=== PATIENT | male | born 1950 | race Caucasian/White ===

== ENCOUNTER 2017-11-23 02:04 | Observation (INO) | payer OTHER ==
[~2017-11-23] VITALS: Ht 182.9 cm; Wt 102.1 kg
[~2017-11-23 02:04] MED LIST: Advil200 M1 PO
[2017-11-23] MEDS ORDERED: AMOX875 PO (02:23)
[2017-11-23] MEDS ORDERED: VIRTUSSIN AC L118 ML PO (02:23)
[2017-11-23] MEDS ORDERED: ALBU90OI INH (02:24)
[2017-11-23] MEDS ORDERED: PRED20 PO (02:24)
[2017-11-23 03:35] LABS: BASOPHILS ABSOLUTE AUTO 0.04 K/mm3 (0.00-0.23); BASOPHILS PERCENT AUTO 0 % (0-2); EOSINOPHILS ABSOLUTE AUTO 0.12 K/mm3 (0.00-0.68); EOSINOPHILS PERCENT AUTO 1 % (0-6); Hematocrit 38.7 % (37.0-53.0); Hemoglobin 13.1 g/dL (13.5-17.5); Mean Corpuscular HGB 28.9 pg (26.0-34.0); Mean Corpuscular HGB Conc 33.9 g/dL (31.5-36.5); Mean Corpuscular Volume 85 fL (80-100); Mean Platelet Volume 11.7 fL (9.1-12.4); Platelet Count 187 K/mm3 (150-400); RDW Coefficient Variation 12.1 % (11.7-14.2); RDW Standard Deviation 37.5 fL (35.1-46.3); Red Blood Cell Count 4.53 M/mm3 (4.30-5.90); White Blood Cell Count 8.97 K/mm3 (4.00-11.30)
[2017-11-23 03:42] LABS: IMMATURE GRAN ABSOLUTE AUTO 0.03 K/mm3 (0.00-0.10); IMMATURE GRAN PERCENT AUTO 0 % (0-1); LYMPHOCYTES ABSOLUTE AUTO 1.69 K/mm3 (0.84-5.20); LYMPHOCYTES PERCENT AUTO 19 % (21-46); MONOCYTES ABSOLUTE AUTO 0.82 K/mm3 (0.16-1.47); MONOCYTES PERCENT AUTO 9 % (4-13); NEUTROPHILS ABSOLUTE AUTO 6.27 K/mm3 (1.96-9.15); NEUTROPHILS PERCENT AUTO 70 % (41-73)
[2017-11-23 03:55] LABS: Alanine Aminotransfer (ALT/SGP 42 U/L (12-78); Albumin/Globulin Ratio 0.7 (0.8-1.8); Alk Phos 70 U/L (50-136); Anion Gap 5 mmol/L (6-16); Aspartate Aminotrans (AST/SGOT 25 U/L (12-37); Bilirubin, Total 0.3 mg/dL (0.1-1.0); Blood Urea Nitrogen 21 mg/dL (8-24); Bun/Creatinine Ratio 17.5 (12.0-20.0); CO2, Blood 29 mmol/L (21-32); Calcium, Blood 8.5 mg/dL (8.5-10.1); Chloride, Blood 105 mmol/L (98-108); Globulin, Blood 4.1 g/dL (2.2-4.0); Glomerular Filtration Rate >60 (60-); Glucose, Blood 102 mg/dL (70-99); Potassium, Blood 4.5 mmol/L (3.5-5.5); Sodium, Blood 139 mmol/L (136-145); Total Protein, Blood 7.1 g/dL (6.4-8.2); Troponin I 0.031 ng/mL (0.000-0.040)
[2017-11-23 05:01] LABS: PO2 Arterial 71.3 mmHg (80-100); pH Blood Arterial 7.43 (7.35-7.45)
[2017-11-23 06:22] LABS: Source, Urine Clean Catch
[2017-11-23 06:23] LABS: Bilirubin, Urine Neg (Neg); Blood, Urine Neg (Neg); Glucose Qualitative, Urine Neg (Neg); Ketones, Urine Neg (Neg); Leukocyte Esterase, Urine Neg (Neg); Nitrite, Urine Neg (Neg); Protein, Urine Neg (Neg); Specific Gravity, Urine 1.015 (1.003-1.022); Urobilinogen, Urine NORM (Normal)
[2017-11-23 06:35] LABS: Appearance, Urine Clear (Clear); Color, Urine Yellow (P-Yellow)
[2017-11-24 05:36] LABS: Hematocrit 38.8 % (37.0-53.0); Hemoglobin 13.3 g/dL (13.5-17.5); Mean Corpuscular HGB 29.2 pg (26.0-34.0); Mean Corpuscular HGB Conc 34.3 g/dL (31.5-36.5); Mean Corpuscular Volume 85 fL (80-100); Mean Platelet Volume 11.2 fL (9.1-12.4); Platelet Count 215 K/mm3 (150-400); RDW Standard Deviation 37.1 fL (35.1-46.3); Red Blood Cell Count 4.56 M/mm3 (4.30-5.90); White Blood Cell Count 7.44 K/mm3 (4.00-11.30)
[2017-11-24 05:56] LABS: Alanine Aminotransfer (ALT/SGP 37 U/L (12-78); Albumin, Blood 2.8 g/dL (3.4-5.0); Albumin/Globulin Ratio 0.7 (0.8-1.8); Alk Phos 62 U/L (50-136); Anion Gap 7 mmol/L (6-16); Aspartate Aminotrans (AST/SGOT 18 U/L (12-37); Bilirubin, Total 0.4 mg/dL (0.1-1.0); Blood Urea Nitrogen 18 mg/dL (8-24); Bun/Creatinine Ratio 16.5 (12.0-20.0); CO2, Blood 27 mmol/L (21-32); Calcium, Blood 8.5 mg/dL (8.5-10.1); Chloride, Blood 107 mmol/L (98-108); Creatinine, Blood 1.09 mg/dL (0.60-1.20); Glomerular Filtration Rate >60 (60-); Glucose, Blood 92 mg/dL (70-99); Potassium, Blood 4.4 mmol/L (3.5-5.5); Sodium, Blood 141 mmol/L (136-145); Total Protein, Blood 6.8 g/dL (6.4-8.2)
[2017-11-24 06:29] LABS: BASOPHILS PERCENT MAN 0 % (0-2); EOSINOPHILS ABSOLUTE MAN 0.22 K/mm3 (0.00-0.68); EOSINOPHILS PERCENT MAN 3 % (0-6); LYMPHOCYTES % ATYPICAL MANUAL 4 % (0-0); LYMPHOCYTES ABSOLUTE MAN 1.11 K/mm3 (0.84-5.20); LYMPHOCYTES PERCENT MAN 11 % (21-46); MONOCYTES ABSOLUTE MAN 0.37 K/mm3 (0.16-1.47); MONOCYTES PERCENT MAN 5 % (4-13); NEUTROPHILS ABSOLUTE MAN 5.72 K/mm3 (1.96-9.15); SEG NEUTROPHILS PERCENT MAN 77 % (41-73); TOTAL CELLS COUNTED 100
[2017-11-24] MEDS ORDERED: ROBITUSSIN NIG237 ML (14:54)
[2017-11-24] MEDS ORDERED: ROBITUSSIN COU237 ML PO (14:57)
[2017-11-24] MEDS ORDERED: FURO20 PO (14:58)
== END 2017-11-24 15:50 | disposition home or self-care (01) ==
LOC: ER 02:04 → ERHOLD 02:05 → SURS 02:05 → MEDS 12:46 → SURS 12:57
PROVIDERS: Emergency Medicine; Internal Medicine
DX: R55 Syncope and collapse (principal); J40 Bronchitis, not specified as acute or chronic; I50.30 Unspecified diastolic (congestive) heart failure; Z87.01 Personal history of pneumonia (recurrent); Z98.890 Other specified postprocedural states
CPT/HCPCS: 36415; 36600; 71260; 80053; 81003; 82803; 83605; 83690; 84484; 85025; 87040; 93005; 93010; 93306; 94760; 94762; 96372; 99285; G0378; J1650; J7030; Q9967

== ENCOUNTER 2019-03-01 06:02 | Day surgery (SDC) | payer OTHER ==
[~2019-03-01] VITALS: Ht 182.9 cm; Wt 103.3 kg
[~2019-03-01 06:02] MED LIST changes: +ALBU90OI INH; +ALLO100 PO; +AMOX875 PO; +ASPI81CH PO; +ATOR40TA PO; +FURO20 PO; +LOSA50 PO; +PRED20 PO; +ROBITUSSIN COU237 ML PO; +ROBITUSSIN NIG237 ML; +VIRTUSSIN AC L118 ML PO
--- NOTE | 2019-03-01 06:39 | NUR ---
Ambulatory in Day Surgery Patient states colon prep with enema.
--- NOTE | 2019-03-01 10:16 | NUR ---
Patient up to Ambulate independently. Gait steady. Discharge instructions reviewed with patient. Patient verbalizes understanding. Copy given to patient to take home. Patient States Post-Procedure ride home has been arranged. Discharged via wheelchair to private car for ride home.
== END 2019-03-02 23:03 | disposition home or self-care (01) ==
LOC: ORSCMMR 06:02 → ORD 07:30 → ORSCMMR 07:30
PROVIDERS: Surgery
PROC: 06BY0ZC Excision of Hemorrhoidal Plexus, Open Approach (ICD-10-PCS; principal; 2019-03-01 07:30)
DX: K64.2 Third degree hemorrhoids (principal); I25.2 Old myocardial infarction; I12.9 Hypertensive chronic kidney disease with stage 1 through stage 4 chronic kidney disease, or unspecified chronic kidney disease; N18.9 Chronic kidney disease, unspecified; Z79.899 Other long term (current) drug therapy; Z79.82 Long term (current) use of aspirin
CPT/HCPCS: 88304; A9270-GY; J1100; J1885; J2370; J2405; J2704; J3010; J7120

== ENCOUNTER 2019-04-23 07:40 | Day surgery (SDC) | payer OTHER ==
[~2019-04-23] VITALS: Ht 182.9 cm; Wt 100.1 kg
[~2019-04-23 07:40] MED LIST changes: +LO-DOSE ASPIRIN81 MG PO
== END 2019-04-23 09:45 | disposition home or self-care (01) ==
LOC: ORSCSDS 07:40
PROVIDERS: Internal Medicine Gastroenterology
PROC: 0DJD8ZZ Inspection of Lower Intestinal Tract, Via Natural or Artificial Opening Endoscopic (ICD-10-PCS; principal; 2019-04-23 09:00)
DX: Z12.11 Encounter for screening for malignant neoplasm of colon (principal); Z80.0 Family history of malignant neoplasm of digestive organs; E78.5 Hyperlipidemia, unspecified; I10 Essential (primary) hypertension; Z79.82 Long term (current) use of aspirin; Z79.899 Other long term (current) drug therapy; G47.30 Sleep apnea, unspecified
CPT/HCPCS: J0461; J1980; J2405; J2704; J7120

== ENCOUNTER 2022-03-28 08:42 | Observation (INO) | payer MEDICARE ==
[~2022-03-28] VITALS: Ht 182.9 cm; Wt 97.5 kg
[2022-03-28 10:07] LABS: BASOPHILS ABSOLUTE AUTO 0.02 K/mm3 (0.00-0.23); BASOPHILS PERCENT AUTO 0 % (0-2); EOSINOPHILS ABSOLUTE AUTO 0.01 K/mm3 (0.00-0.68); EOSINOPHILS PERCENT AUTO 0 % (0-6); Hematocrit 47.2 % (37.0-53.0); IMMATURE GRAN ABSOLUTE AUTO 0.03 K/mm3 (0.00-0.10); IMMATURE GRAN PERCENT AUTO 0 % (0-1); LYMPHOCYTES ABSOLUTE AUTO 0.61 K/mm3 (0.84-5.20); LYMPHOCYTES PERCENT AUTO 5 % (21-46); MONOCYTES ABSOLUTE AUTO 0.58 K/mm3 (0.16-1.47); MONOCYTES PERCENT AUTO 5 % (4-13); Mean Corpuscular HGB 29.5 pg (26.0-34.0); Mean Corpuscular HGB Conc 33.9 g/dL (31.5-36.5); Mean Corpuscular Volume 87 fL (80-100); Mean Platelet Volume 11.5 fL (9.1-12.4); NEUTROPHILS ABSOLUTE AUTO 11.11 K/mm3 (1.96-9.15); NEUTROPHILS PERCENT AUTO 90 % (41-73); Platelet Count 169 K/mm3 (150-400); RDW Coefficient Variation 12.5 % (11.7-14.2); RDW Standard Deviation 39.6 fL (35.1-46.3); Red Blood Cell Count 5.43 M/mm3 (4.30-5.90); White Blood Cell Count 12.36 K/mm3 (4.00-11.30)
[2022-03-28 10:29] LABS: Albumin, Blood 3.9 g/dL (3.4-5.0); Albumin/Globulin Ratio 1.1 (0.8-1.8); Bilirubin, Total 0.7 mg/dL (0.1-1.0); Bun/Creatinine Ratio 14.3 (12.0-20.0); Calcium, Blood 9.2 mg/dL (8.5-10.1); Creatinine, Blood 0.98 mg/dL (0.60-1.20); Globulin, Blood 3.5 g/dL (2.2-4.0); Potassium, Blood 4.8 mmol/L (3.5-5.5); Total Protein, Blood 7.4 g/dL (6.4-8.2)
[2022-03-28 12:29] LABS: Prothrombin Time Results 10.5 Sec (9.7-11.5)
[2022-03-28 13:52] LABS: SARS-Cov-2 (COVID-19) PCR, MMC NEGATIVE (NEGATIVE)
--- NOTE | 2022-03-28 13:57 | NUR ---
PT ARRIVED TO FROM ED/NOW TO OR. PT ARRIVED TO FROM ED ACCOMPANIED BY SPOUSE. TRANSFERRED INDEPENDENTLY FROM [facility] TO BED. SURICAL INFECTION PREVENTION PACK COMPLETED. ORIENTED PT TO ROOM/USE OF CALL LIGHT. VSS. PT REPORTS HX OF HTN AND SNORING. NOW TO OR.
--- NOTE | 2022-03-28 14:34 | NUR ---
03/28/22 1434 [address] PATIENT RECEIVED ROCEPHIN 1GM IN ER @ 1125 TODAY.
--- NOTE | 2022-03-28 15:58 | NUR ---
PT ARRIVED BACK TO UNIT FROM PACU. SCOOTED INDEPENDENTLY FROM GURNEY TO BED. SPOUSE AT BEDSIDE. PT REPORTS PAIN TOLERABLE, RATING 1-2/10 ON PAIN SCALE. DENIES N/V OR SOB. VSS. LAP INCISIONS TO ABD X4 W/GAUZE AND TEGARDERM; CDI. REORIENTED PT TO USE OF CALL LIGHT. GAVE PRESCRIPTION TO SPOUSE, COPY ON CHART. PT PROVIDED W/WATER, JELLO AND CRACKERS. IV FLUIDS INFUSING. CALL LIGHT IN REACH.
--- NOTE | 2022-03-28 18:13 | NUR ---
SUMMARY NO ACUTE CHANGES SINCE ARRIVING TO FLOOR FROM PACU. MEDICATED PT PER ORDERS FOR ABDOMINAL PAIN. TOLERATING DIET, DENIES N/V. IV FLUIDS INFUSING PER ORDERS. CALL LIGHT IN REACH. MULTIPLE VISITORS AT BEDSIDE AT THIS TIME.
--- NOTE | 2022-03-29 07:12 | NUR ---
POD 1 S/P LAP ELIZABETH. PT VSS T/O NIGHT. DRESSINGS CDI. PT REP CURTIS THIS AM AFTER PRN PAIN MEDS. PT CURTIS PO, DENIES N/V, REP +FLATUS, IS VOIDING URINE W/O DIFFICULTY. PT AMB INDEP IN ROOM, CURTIS WELL. BEDSIDE REPORT GIVEN TO Jackson BARRIOS RN. PT AWAKE IN BED, USING PHONE, DENIES NEEDS AT TIME.
[2022-03-29] MEDS ORDERED: OXYC10TA19 PO (12:02)
--- NOTE | 2022-03-29 13:19 | NUR ---
DISCHARGE SUMMARY POD 1 LAP ELIZABETH, A/O X4, VSS, TOLERATING PO, PAIN WELL MANAGED, INDEPENDENT IN THE ROOM. DISCUSSED DISCHARGE INSTRUCTIONS WITH THE PATIENT INCLUDING HOME CARE, S/SX TO BE ON THE LOOKOUT FOR, HOW TO CONTACT THE DOCTOR AND NURSE STATION IF [facility] COME UP AFTER DISCHARGE, MEDICATIONS GOING HOME, AND FOLLOW UP APPOINTMENTS. PT NICHOLE ANSWERED TO HIS SATISFACTION. IV ACCESS REMOVED, PT ESCORTED OUT BY STAFF TO HIS PRIVATE AUTO WITH HIS TO TAKE HIM HOME.
== END 2022-03-29 12:55 | disposition home or self-care (01) ==
LOC: ER 08:42 → SURS 08:43 → ER 11:26 → SURS 11:26
PROVIDERS: Physician Assistant; Student in an Organized Health Care Education/Training Program; ADMIT Surgery
PROC: 0FT44ZZ Resection of Gallbladder, Percutaneous Endoscopic Approach (ICD-10-PCS; principal; 2022-03-28 13:15)
DX: K80.12 Calculus of gallbladder with acute and chronic cholecystitis without obstruction (principal); K82.A1 Gangrene of gallbladder in cholecystitis; Z79.82 Long term (current) use of aspirin; I10 Essential (primary) hypertension; E78.5 Hyperlipidemia, unspecified; Z20.822 Contact with and (suspected) exposure to COVID-19
CPT/HCPCS: 76705; 80053; 83690; 85025; 85610; 85730; 86850; 86900; 86901; 96361; 96374; 96375; 96376; 99285-25; A9270; G0378; J0295; J0696; J1100; J1170; J1885; J2370; J2405; J2704; J3010; J7030; U0004